=== PATIENT | female | born 1990 | race Caucasian/White ===

== ENCOUNTER 2021-04-22 09:38 | Emergency (ER) | payer SELFPAY ==
[2021-04-22] MEDS ORDERED: Sodium Chloride 0.9% 1,000 ML IV ONE (10:40)
--- NOTE | 2021-04-22 11:39 | EDM.PDOC ---
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 Some sinus drainage, occasional cough, No nause vomiting or diarrhea Vaccinated. Treatments ACOUSTICAL CARPENTER: Reports: Other Medication(s) throat Pain Score (Numeric/FACES): 9 - Related Data Allergies Allergy/AdvReac Type Severity Reaction Status Date / Time No Known Allergies Allergy Verified 04/22/21 10:05 Home Meds: Home Meds Albuterol Sulfate [Albuterol Sulfate Hfa] 2 puff IH Q4H PRN 04/22/21 [History] Past Medical History HEENT History: Reports: None Cardiovascular History: Reports: None Respiratory History: Reports: Asthma Gastrointestinal History: Reports: None Genitourinary History: Reports: None CHANNEL MANAGER History: Reports: None Musculoskeletal History: Reports: None Neurological History: Reports: None Psychiatric History: Reports: None Endocrine/Metabolic History: Reports: None Hematologic History: Reports: None Immunologic History: Reports: None Oncologic (Cancer) History: Reports: None Dermatologic History: Reports: None - Infectious Disease History Infectious Disease History: Reports: None - Past Surgical History HEENT Surgical History: Reports: None Cardiovascular Surgical History: Reports: None GI Surgical History: Reports: None Neurological Surgical History: Reports: None Musculoskeletal Surgical History: Reports: None Social & Family History - Family History Family Medical History: No Pertinent Family History - Tobacco Use Tobacco Use Status *Q: Never Tobacco User Second Hand Smoke Exposure: No - Caffeine Use Caffeine Use: Reports: Coffee - Recreational Drug Use Recreational Drug Use: No ED ROS ENT - Review of Systems Review Of Systems: Comprehensive ROS is negative, except as noted in HPI. ED EXAM, ENT - Physical Exam Exam: See Below Exam Limited By: No Limitations General Appearance: Alert, No Apparent Distress Eye Exam: Bilateral Eye: EOMI Ears: Normal External Exam Mouth/Throat: Normal Inspection, Tonsillar Erythema (mild) Head: Atraumatic, Normocephalic Respiratory/Chest: No Respiratory Distress, Lungs Clear, Normal Breath Sounds Cardiovascular: Normal Peripheral Pulses, Regular Rate, Rhythm Back: Normal Inspection Extremities: Normal Inspection Neurological: Alert, Oriented, Normal Cognition Psychiatric: Normal Affect, Normal Mood Skin: Warm, Dry, Intact, No Rash Course - Vital Signs Last Recorded V/S: Last Vital Signs Temp 97.7 F 04/22/21 09:57 Pulse 76 04/22/21 09:57 Resp 18 04/22/21 09:57 BP 117/60 04/22/21 09:57 Pulse Ox 97 04/22/21 09:57 - Orders/Labs/Meds Orders: Active Orders 24 hr Category Date Time Status CULTURE STREP A CONFIRMATION [] Stat Lab 04/22/21 10:00 Results STREP SCRN A RAPID W CULT CONF [] Stat Lab 04/22/21 10:00 Results Labs: Laboratory Tests 04/22/21 04/22/21 04/22/21 Range/Units 09:58 11:11 11:11 WBC 4.9 L (5.0-10.0) 10^3/uL RBC 4.80 (4.2-5.4) 10^6/uL Hgb 13.7 (12.0-16.0) g/dL Hct 41.8 (37.0-47.0) % MCV 87.1 (80-100) fL MCH 28.5 (27.0-34.0) pg MCHC 32.8 L (33.0-35.0) g/dL Plt Count 283 (150-450) 10^3/uL Neut % (Auto) 58.7 (42.2-75.2) % Lymph % (Auto) 26.9 (20.5-50.1) % Iron % (Auto) 11.7 H (2-8) % Eos % (Auto) 2.1 (1.0-3.0) % Baso % (Auto) 0.6 (0.0-1.0) % Sodium 140 (136-145) mmol/L Potassium 4.2 (3.5-5.1) mmol/L Chloride 106 (98-107) mmol/L Carbon Dioxide 24 (21-32) mmol/L Anion Gap 14.2 H (7-13) mEq/L BUN 11 (7-18) mg/dL Creatinine 0.61 (0.55-1.02) mg/dL Est Cr Clr Drug Dosing 157.03 mL/min Estimated GFR (MDRD) > 60 BUN/Creatinine Ratio 18.0 (No establ ref range) Glucose 88 (70-99) mg/dL Calcium 8.6 (8.5-10.1) mg/dL Total Bilirubin 1.2 H (0.2-1.0) mg/dL AST 20 (15-37) U/L ALT 33 (14-59) U/L Alkaline Phosphatase 67 (46-116) U/L Total Protein 6.6 (6.4-8.2) g/dL Albumin 3.8 (3.4-5.0) g/dL Globulin 2.8 Albumin/Globulin Ratio 1.4 Monoscreen Negative SARS-CoV-2 RNA (APRIL) Negative (NEGATIVE) Meds: Medications Discontinued Medications Generic Name Dose Route Start Last Admin Trade Name Deangeloq PRN Reason Stop Dose Admin Sodium Chloride 1,000 mls @ 999 mls/hr 04/22/21 10:40 04/22/21 11:25 Normal Saline IV 04/22/21 11:40 999 mls/hr .BOLUS ONE Administration Departure - Departure Time of Disposition: 12:26 Disposition: Home, Self-Care 01 Condition: Good Clinical Impression: Pharyngitis Qualifiers: Pharyngitis/tonsillitis etiology: unspecified etiology Qualified Code(s): J02.9 - Acute pharyngitis, unspecified - Discharge Information *PRESCRIPTION DRUG MONITORING PROGRAM REVIEWED*: No *COPY OF PRESCRIPTION DRUG MONITORING REPORT IN PATIENT CORTNEY: No Instructions: Sore Throat, [id number] Forms: ED Department Discharge Additional Instructions: alternate tylenol and ibuprofen every 4 hours as needed for fever/ discomfort humidifier increase fluids slat water gargle Chloraseptic throat spray as needed follow up next week if not improving or not tolerating fluids Sepsis Event Note (ED) - Evaluation Sepsis Screening Result: No Definite Risk - Focused Exam Vital Signs: Vital Signs Temp Pulse Resp BP Pulse Ox 04/22/21 09:57 97.7 F 76 18 117/60 97 - My Orders Last 24 Hours: My Active Orders 04/22/21 10:00 CULTURE STREP A CONFIRMATION [RM] Stat STREP SCRN A RAPID W CULT CONF [] Stat - Assessment/Plan Last 24 Hours: My Active Orders 04/22/21 10:00 CULTURE STREP A CONFIRMATION [RM] Stat STREP SCRN A RAPID W CULT CONF [] Stat
[2021-04-22 12:03] LABS: ANION GAP 14.2 mEq/L (7-13); CHLORIDE,CL 106 mmol/L (98-107); SODIUM,NA 140 mmol/L (136-145)
== END 2021-04-22 11:36 | disposition home or self-care (01) ==
LOC: DL.ED 09:38
DX: J02.9 Acute pharyngitis, unspecified (principal); J45.909 Unspecified asthma, uncomplicated; Z20.822 Contact with and (suspected) exposure to COVID-19
CPT/HCPCS: 36415; 80053; 85025; 86308; 87081; 87430; 99283; J7030; U0002